=== PATIENT | male | born 1980 | race Caucasian/White ===

== ENCOUNTER → 2017-06-14 08:50 | Emergency (ER) | payer OTHER ==
[2017-06-14 08:55] VITALS: BP 131/99
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
== END | disposition home or self-care (01) ==
LOC: ED 08:50
DX: M54.9 Dorsalgia, unspecified (principal); F17.210 Nicotine dependence, cigarettes, uncomplicated; V89.2XXA Person injured in unspecified motor-vehicle accident, traffic, initial encounter; Y93.9 Activity, unspecified; Y92.9 Unspecified place or not applicable
CPT/HCPCS: 72100; 99281

== ENCOUNTER → 2017-06-20 14:11 | Emergency (ER) | payer OTHER ==
[~2017-06-20 14:11] MED LIST: Ibuprofen TAB* 600 MG PO ONE
[2017-06-20 14:15] VITALS: BP 142/73
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
== END | disposition home or self-care (01) ==
LOC: ED 14:11
DX: S00.83XA Contusion of other part of head, initial encounter (principal); Y04.2XXA Assault by strike against or bumped into by another person, initial encounter; Y92.810 Car as the place of occurrence of the external cause; D64.9 Anemia, unspecified; Z86.718 Personal history of other venous thrombosis and embolism; M06.9 Rheumatoid arthritis, unspecified
CPT/HCPCS: 70486; 99282; A9270-GY

== ENCOUNTER 2018-06-20 07:17 | Emergency (ER) | payer OTHER ==
--- NOTE | 2018-06-20 07:36 | ED ---
GI/ HPI - HPI Summary HPI Summary: This patient is a 38 year old M brought in by EMS to [facility] with a chief complaint of left flank pain that began at 0530 this morning with a hx of kidney stones. He states the pain woke him up out of his sleep, radiates from his flank to his urethra, and that his pain is similar to prior kidney stones. The patient rates the pain 9/10 in severity. Patient reports two episodes of vomiting. He also c/o bloody stool that is dark red, he has had this for the last few weeks, and has informed his PCP who he states was unconcerned even though his is on xarelto. - History of Current Complaint Chief Complaint: EDFlankPain Time Seen by Provider: 06/20/18 07:29 Stated Complaint: BACK PAIN Hx Obtained From: Patient Onset/Duration: Started Hours Ago, Still Present Timing: Constant Severity: Severe Current Severity: Severe Pain Intensity: 9 Location of Pain: Flank Associated Signs and Symptoms: Positive: Nausea, Vomiting - Allergy/Home Medications Allergies/Adverse Reactions: Allergies Allergy/AdvReac Type Severity Reaction Status Date / Time acetaminophen [From Tylenol] Allergy Anaphylatic Verified 06/20/18 07:44 Shock latex Allergy Anaphylatic Verified 06/20/18 07:44 Shock bee sting Allergy Mild Anaphylatic Uncoded 06/20/18 07:44 Shock dust Allergy Mild Sneezing Uncoded 03/05/16 13:06 pollen Allergy Mild Sneezing Uncoded 03/05/16 13:06 PMH/Surg Hx/FS Hx/Imm Hx Endocrine/Hematology History: Reports: Hx Anemia Cardiovascular History: Reports: Hx Deep Vein Thrombosis - 07/04/2013 WAS ON LOVENOX AT HOME, Hx Hypertension, Other Cardiovascular Problems/Disorders - HEART MURMEUR Respiratory History: Reports: Hx Asthma, Hx Chronic Obstructive Pulmonary Disease (COPD), Other Respiratory Problems/Disorders - DVT, PULM CLOT GI History: Comment Only: Other GI Disorders - +HEP C Musculoskeletal History: Reports: Hx Rheumatoid Arthritis, Other Musculoskeletal History - rheumatoin arthritis Sensory History: Reports: Hx Vision Problem, Hx Hearing Problem Opthamlomology History: Reports: Hx Vision Problem Neurological History: Reports: Hx Seizures, Other Neuro Impairments/Disorders - hard of hearing,very nearsightedness, left sided weakness - Surgical History Surgery Procedure, Year, and Place: inguinal hernia repairs-bilat Hx Anesthesia Reactions: No Infectious Disease History: Yes Infectious Disease History: Reports: Hx Hepatitis - HEP C Denies: Traveled Outside the [place] in Last 30 Days - Family History Known Family History: Positive: Diabetes Family History: FHx of diabetes and athritis - Social History Alcohol Use: None Hx Substance Use: Yes Substance Use Type: Reports: Other Substance Use Comment - Amount & Last Used: currently using methadone 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 Patient is not in any acute respiratory distress. HEAD AND FACE: Normocephalic EYES: PERRLA, EOMI x 2. EARS: Hearing grossly intact. MOUTH: Oropharynx within normal limits. NECK: Supple, trachea is midline, no adenopathy, no JVD, no carotid bruit. CHEST: Symmetric, no tenderness at palpation LUNGS: Clear to auscultation bilaterally. No wheezing or crackles. CVS: Regular rate and rhythm, S1 and S2 present, no murmurs or gallops appreciated. ABDOMEN: Soft, non-tender. Bowel sounds are normal. No abdominal abnormal pulsations. EXTREMITIES: Full ROM in all major joints, no edema, no cyanosis or clubbing. NEURO: Alert and oriented x 3. No acute neurological deficits. Speech is normal and follows commands. SKIN: Dry and warm Rectal: there are no palpable hemorrhoids. stool guaiac sent to lab. Chaperoned by Almas Flood. Triage Information Reviewed: Yes Vital Signs On Initial Exam: Initial Vitals Temp Pulse Resp BP Pulse Ox 98.0 F 106 20 132/89 95 06/20/18 07:24 06/20/18 07:24 06/20/18 07:24 06/20/18 07:24 06/20/18 07:24 Vital Signs Reviewed: Yes Diagnostics - Vital Signs Vital Signs Temp Pulse Resp BP Pulse Ox 06/20/18 07:24 98.0 F 106 20 132/89 95 - Laboratory Result Diagrams: 06/20/18 08:12 06/20/18 08:12 Lab Statement: Any lab studies that have been ordered have been reviewed, and results considered in the medical decision making process. - CT CT ABD/Pelvis CT Interpretation Completed By: Radiologist Summary of CT Findings: 0.2 CM CALCULUS OF THE LEFT UVJ WITHOUT APPRECIABLE HYDRONEPHROSIS. HEPATOMEGALY WITH FATTY INFILTRATION OF THE LIVER. ED physician has reviewed this radiology report. GIGU Course/Dx - Course Assessment/Plan: This patient is a 38 year old M brought in by EMS to [facility] with a chief complaint of left flank pain that began at 0530 this morning with a hx of kidney stones.. CT ABD/Pelvis reveals, per radiologist, 0.2 CM CALCULUS OF THE LEFT UVJ WITHOUT APPRECIABLE HYDRONEPHROSIS. HEPATOMEGALY WITH FATTY INFILTRATION OF THE LIVER. Stool guaiac was negative for blood. Pain is controlled. UA shows no distinct evidcne of UTI so there is no need for abx. In the ED course the patient was given Zofran, oxycodone, percocet, and IV fluids. The patient could not be given toradol due to the c/o rectal bleeding. Patient will be discharged and follow up from Dr. Ashraf,. The patient is agreeable with this plan. Pt heart rate on dc is 85 and he appears stable. - Diagnoses Provider Diagnoses: Kidney stone Discharge - Sign-Out/Discharge Documenting (check all that apply): Patient Departure - Discharge Plan Condition: Stable Disposition: HOME Prescriptions: Ondansetron ODT TAB* [Zofran 4 MG Odt TAB*] 4 mg PO Q6H PRN #10 tab.odt PRN Reason: Nausea oxyCODONE TAB* [Roxycodone TAB 5 mg*] 5 mg PO Q4H PRN #12 tab MDD 6 PRN Reason: Pain Patient Education Materials: Kidney Stones (ED) Referrals: Efraín Lomas MD [Primary Care Provider] - David Ashraf MD [Medical Doctor] - 2 Days Additional Instructions: Follow up with your primary care physician in 1-3 days. RETURN TO THE EMERGENCY DEPARTMENT FOR CHANGING OR WORSENING SYMPTOMS. - Billing Disposition and Condition Condition: STABLE Disposition: Home - Attestation Statements Document Initiated by Scribe: Yes Documenting Scribe: Remigio Finch Provider For Whom Scribe is Documenting (Include Credential): Maureen Squires MD Scribe Attestation: Remigio Jean Baptiste scribed for Maureen Squires MD on 06/20/18 at 1724. Scribe Documentation Reviewed: Yes Provider Attestation: The documentation as recorded by the Remigio blas accurately reflects the service I personally performed and the decisions made by me, Maureen Squires MD Status of Scribe Document: Viewed
[2018-06-20] MEDS ORDERED: oxyCODONE/Acetamin 5/325 MG* TAB PO ONE (08:03)
[2018-06-20] MEDS ORDERED: oxyCODONE TAB* 5 MG TAB PO ONE (08:04)
[2018-06-20] MEDS ORDERED: Ondansetron ODT TAB* 4 MG SL ONE (08:05)
[2018-06-20 08:20] LABS: ABS Basophils 0.1 10^3/ul (0-0.2); ABS Eosinophils 0.5 10^3/ul (0-0.6); ABS Lymphocytes 1.6 10^3/ul (1.0-4.8); ABS Monocytes 0.5 10^3/ul (0-0.8); ABS Neutrophils 7.6 10^3/ul (1.5-7.7); ABS Nucleated RBC 0 10^3/ul; Eosinophil % 4.4 %; Hematocrit 45 % (42-52); Hemoglobin 15.4 g/dl (14.0-18.0); Lymphocyte % 15.8 %; Mean Corpuscular HGB Conc 34 g/dl (31-36); Mean Corpuscular Hemoglobin 30 pg (27-31); Mean Corpuscular Volume 88 fL (80-94); Mean Platelet Volume 7.4 fL (7.4-10.4); Nucleated Red Blood Cells % 0; Platelet Count 206 10^3/ul (150-450); Red Blood Count 5.09 10^6/ul (4.00-5.40); Red Cell Distribution Width 13 % (10.5-15); White Blood Count 10.4 10^3/ul (3.5-10.8)
[2018-06-20 08:35] LABS: EGFR Non-African American 93.1 (>60)
[2018-06-20 08:42] LABS: INR 1.09 (0.77-1.02)
[2018-06-20] MEDS ORDERED: NS 0.9% 1000 ML* 1,000 ML IV ONE (10:07)
[2018-06-20 11:42] LABS: Urine Appearance Cloudy; Urine Blood 2+ (Negative); Urine Color Yellow; Urine Ketones Trace (Negative); Urine Protein Negative (Negative); Urine Red Blood Cell 3+(>10/hpf) (Absent); Urine Specific Gravity 1.018 (1.010-1.030); Urine Urobilinogen Negative (Negative); Urine White Blood Cell Trace(0-5/hpf) (Absent)
[2018-06-20 12:47] VITALS: BP 118/97
== END 2018-06-20 12:46 | disposition home or self-care (01) ==
LOC: ED 07:17
DX: N20.1 Calculus of ureter (principal); Z87.442 Personal history of urinary calculi; D64.9 Anemia, unspecified; Z86.718 Personal history of other venous thrombosis and embolism; I10 Essential (primary) hypertension; J44.9 Chronic obstructive pulmonary disease, unspecified; M06.9 Rheumatoid arthritis, unspecified; Z72.0 Tobacco use; B19.20 Unspecified viral hepatitis C without hepatic coma
CPT/HCPCS: 36415; 74176; 80053; 81003; 81015; 82272; 85025; 85610; 85730; 86141; 86850; 86900; 86901; 87086; 96361; 99282; A9270-GY

== ENCOUNTER 2023-06-05 16:26 | Observation (INO) ==
[2023-06-05 17:58] LABS: ABS Basophils 0.1 10^3/uL (0.0-0.1); ABS Eosinophils 0.2 10^3/uL (0.0-0.5); ABS Lymphocytes 2.7 10^3/uL (1.0-4.8); ABS Monocytes 0.7 10^3/uL (0.0-1.1); ABS Neutrophils 5.6 10^3/uL (1.5-7.6); ABS Nucleated RBC 0.01 10^3/ul; Eosinophil % 2.4 %; Hemoglobin 11.2 g/dL (13.2-16.3); Lymphocyte % 28.9 %; Mean Corpuscular Hemoglobin 29.7 pg (27-33); Mean Corpuscular Hgb Conc 33.8 g/dL (31-36); Mean Corpuscular Volume 87.7 fL (80-97); Nucleated Red Blood Cells % 0.1 %/100WBC (0.0-0.8); Platelet Count 186 10^3/uL (150-450); Red Blood Count 3.77 10^6/uL (4.06-5.63); Red Cell Distribution Width 14.7 % (12-17); White Blood Count 9.4 10^3/uL (3.6-10.2)
[2023-06-05 18:14] LABS: Albumin 3.8 g/dL (3.2-5.2); C Reactive Protein 14.92 mg/L (<8.01); Calcium 8.9 mg/dL (8.6-10.3); Creatinine, Serum 0.53 mg/dL (0.67-1.17); Globulin 3.7 g/dL (2-4); Total Bilirubin 0.3 mg/dL (0.2-1.0); Total Protein 7.5 g/dL (6.4-8.9); eGFR CKD-EPI 129.1 (>60)
[2023-06-05 18:15] LABS: Activated Partial Thrombo Time 35.1 seconds (26.0-38.0); INR 1.24 (0.83-1.13)
[2023-06-05] MEDS ORDERED: Pantoprazole 80 mg in NS BAG 80 MG/250 ML BAG IV ONE (18:42)
[2023-06-05] MEDS ORDERED: Pantoprazole 80 mg in NS BAG 80 MG/250 ML BAG IV SCH (19:00)
[2023-06-05] MEDS ORDERED: Albuterol HFA INHALER 8 gm MDI INH PRN (23:41)
[2023-06-06] MEDS ORDERED: Pantoprazole 80 mg in NS BAG 80 MG/250 ML BAG IV SCH (05:00)
[2023-06-06 08:05] LABS: Hematocrit 30.5 % (38-53); Hemoglobin 10.4 g/dL (13.2-16.3); Mean Corpuscular Hemoglobin 29.9 pg (27-33); Mean Corpuscular Hgb Conc 34.1 g/dL (31-36); Mean Corpuscular Volume 87.9 fL (80-97); Mean Platelet Volume 8.1 fL (7.5-11.2); Platelet Count 164 10^3/uL (150-450); Red Blood Count 3.48 10^6/uL (4.06-5.63); Red Cell Distribution Width 14.5 % (12-17); White Blood Count 6.2 10^3/uL (3.6-10.2)
[2023-06-06] MEDS ORDERED: Methadone ORALSYR CONC LIQ 10 MG/ML PO SCH ×2 (09:00)
[2023-06-06] MEDS ORDERED: CMCS:FLUTICAS/UMECLI/VILANT 200-62.5-25 MDI (NF) INH SCH (09:00)
[2023-06-06 09:13] LABS: Calcium 8.6 mg/dL (8.6-10.3); Creatinine, Serum 0.6 mg/dL (0.67-1.17); Potassium 3.6 mmol/L (3.5-5.0); eGFR CKD-EPI 124.4 (>60)
[2023-06-06] MEDS: Sucralfate 1 gm SUSP 1 GM/10 ML UDC PO SCH ×2 (09:35→12:08)
[2023-06-06] MEDS ORDERED: Ondansetron 4 mg VIAL 2 MG/ML 2 ml VIAL IV PRN (10:36)
[2023-06-06 11:36] LABS: HIV 4th Generation Nonreactive (Nonreactive)
[2023-06-06] MEDS ORDERED: Naloxone 0.4 mg VIAL 0.4 mg/ml 1 ml VIAL IV PRN (16:31)
[2023-06-06] MEDS ORDERED: KETAMINE HCL 10 MG/ML 20 ml VIAL (200 MG) ONE (16:41)
[2023-06-06] MEDS ORDERED: Propofol 10 MG/ML 20 ML BTL ONE (17:13)
[2023-06-06 18:20] VITALS: BP 92/45
== END 2023-06-06 18:50 | disposition left against medical advice (07) ==
LOC: ED 16:26 → EDHOLD 16:26 → SUATTDRO 21:15 → MED 23:05
PROVIDERS: ADMIT Internal Medicine; ATTEND Internal Medicine
PROC: O.GIEGD (2023-06-06 14:50)